=== PATIENT | male | born 1975 | race Caucasian/White ===

== ENCOUNTER 2024-03-06 07:03 | Emergency (ER) | payer MEDICAID, SELFPAY ==
[2024-03-06 07:05] VITALS: BP 168/94; PULSE 98; RESP 20; TEMP 36.4; O2SAT 100
--- NOTE | 2024-03-06 07:05 | ED.GENADULT ---
HPI - General Adult General Chief complaint: Dental/Oral Stated complaint: facial swelling Time Seen by Provider: 03/06/24 07:05 Source: patient Mode of arrival: ambulatory Limitations: no limitations History of Present Illness HPI narrative: Patient stated it woke up with his chin swollen. Yesterday had a blackhead on his chin and he squeezed it now his chin is swollen or red there is a scab over his chin. Got 1 tooth on the bottom couple on top. Said he woke up crying this morning denies any allergies. He also has had some discharge in his eyes that was clearing up. He is seeing okay. Denies any problems eating or drinking voiding or stooling rash or itching bleeding or bruising other swelling lumps or bumps problems walking talking seeing or hearing bleeding or bruising or any other complaints. He has had this swelling before and Augmentin has helped it. Related Data Allergies Allergy/AdvReac Type Severity Reaction Status Date / Time No Known Allergies Allergy Verified 03/06/24 07:07 Review of Systems Review of Systems: All systems reviewed & are unremarkable except as noted in HPI and below [facility] Comments Works in a [employer] y[employer] Exam Narrative: White male patient with no apparent distress.? Head chin is swollen red tender he has a 1 x 1/2 cm scab on his chin..? Eyes conjunctiva injected, slight yellow discharge bilateral, sclera nonicteric.? Extraocular movements are intact.? Ears externally normal.? TMs are normal Oropharynx is clear with moist mucous membranes without exudates.? Neck is supple nontender no lymphadenopathy.? Back is nontender.? Lungs are clear.? Heart is regular rate and rhythm without murmurs gallops or rubs.? Chest wall nontender.? Back is nontender. Abdomen is soft and nontender no hepatosplenomegaly or masses no CVA tenderness no abdominal bruits.? Extremities no cyanosis clubbing or edema.? Skin is warm and dry without rashes or lesions.? Neurological patient is alert and oriented x4.? Motor and sensory grossly intact.? Gait is normal. Medical Decision Making MDM Narrative Medical decision making narrative: Patient was placed in Room # room 1 Independent Historian: patient Differential Dx includes but not limited to: cellulitis abscess to conjunctivitis Medications were Reviewed: home meds reviewed Medications, treatment, ED course: Rocephin 1 g IM with lidocaine and Toradol 30 mg IM Independently Interpreted by me: External Source Review: Shared decision Making: evaluation was discussed with patient all questions were asked and answered patient agreed with the plan. He would take Tylenol ibuprofen Augmentin 875 twice a day for 10 days Bleph 10 2 drops 4 times a day to both eyes Social Situation Impacting Patients Care: DISCHARGE DIAGNOSIS: conjunctivitis cellulitis of the face DISPOSITION: discharge home CONDITION AT DISCHARGE: stable Discharge Plan Discharge Clinical Impression: Cellulitis of face, Conjunctivitis Patient Disposition: Home, Self-Care Condition: Stable Instructions: Antibiotic Form, Cellulitis (ED), Conjunctivitis (ED) Additional Instructions: Tylenol and or ibuprofen as needed for pain. Warm compress to the right side of her face for 20 minutes 4 times a day for the next 5 days. Augmentin 875 twice a day for 7 days. Bleph-10 2 drops both eyes 4 times a day for 7 days. Return if you get worse or develops any new symptoms. Follow-up with primary care provider. Prescriptions: New sulfacetamide sodium 10 % drops 2 drp EACH EYE QID 7 Days Qty: 15 0RF amoxicillin-pot clavulanate 875-125 mg tablet 1 tablet PO Q12H 7 Days Qty: 14 0RF Follow-up/Referrals: UNKNOWN,DOCTOR [Primary Care Provider] - Time of Disposition: 07:28
[2024-03-06] MEDS: cefTRIAXone 1 GM, LIDOCAINE HCL 1% LOCAL INJ 2.1 ML IM (07:27)
[2024-03-06] MEDS: KETOROLAC 30 MG/ML VIAL (*BKC) IM (07:28)
[2024-03-06 07:34] VITALS: BP 162/94; PULSE 98; RESP 20; TEMP 36.8; O2SAT 100
== END 2024-03-06 07:34 | disposition home or self-care (01) ==
LOC: CHSED 07:33
PROVIDERS: Emergency Provider Emergency Medicine
DX: L03.211 Cellulitis of face (principal); H10.9 Unspecified conjunctivitis
CPT/HCPCS: 96372; 99284; J0696; J1885